=== PATIENT | male | born 1985 | race Caucasian/White ===

== ENCOUNTER 2018-02-27 10:55 | Outpatient (CLI) | payer OTHER | END 2018-02-27 10:56 | disposition home or self-care (01) | LOC: DTY/OP 10:55 | PROVIDERS: ATTEND Family Medicine | DX: E78.1 Pure hyperglyceridemia (principal) | CPT/HCPCS: 97802 ==

== ENCOUNTER 2018-04-24 06:22 | Emergency (ER) | payer OTHER ==
[2018-04-24] MEDS ORDERED: HYDROcodone/Acetaminophen 5/325 mg Tablet ONE (06:39)
== END 2018-04-24 06:42 | disposition home or self-care (01) ==
LOC: ERS 06:22
DX: M54.12 Radiculopathy, cervical region (principal); F17.210 Nicotine dependence, cigarettes, uncomplicated; Z79.899 Other long term (current) drug therapy
CPT/HCPCS: 99283

== ENCOUNTER 2018-05-09 08:53 | Outpatient (CLI) | payer OTHER ==
--- NOTE | 2018-05-09 11:53 | MRI ---
MRI CERVICAL SPINE WITHOUT CONTRAST: HISTORY: Cervical radicular pain. Symptoms involve the left shoulder and radiate down the left arm. Left abarca d tingling. COMPARISON: None. TECHNIQUE: A cervical spine MRI is performed without intravenous Gadolinium administration. Multisequential, mu ltiplanar imaging is performed. FINDINGS: There is an anterior fusion plate with a transvertebral body screw at C6 and C7. Associated metallic susceptibility artifact. Straightening of normal cervical lordosis may be due to patient position o r muscle spasm. No significant STIR hyperintensity to suggest vertebral body edema or ligamentous in jury. The visualized brain parenchyma, the cervicomedullary junction, the cervical cord, and the upper thor acic cord have normal size and signal intensity. 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 The Tornwa ldt cyst measures 1.3 x 1.1 cm. C2-C3: No significant central canal stenosis or neural foraminal narrowing. C3-C4: No significant central canal stenosis. The neural foramina are patent. C4-C5: There is a broad-based disk osteophyte complex that abuts the thecal sac and effaces the vent ral subarachnoid space. Mild central canal stenosis. The neural foramina are patent. Minimal mass effect upon the ventral cord. C5-C6: There is a central/left paracentral disk osteophyte complex that abuts the thecal sac. The v entral subarachnoid space is maintained. Mild central canal stenosis. The neural foramina are paten t. C6-C7: There is a central/right paracentral osteophyte complex. Mild central canal stenosis. The n eural foramina are patent. C7-T1: No significant central canal stenosis. The neural foramina are patent bilaterally. IMPRESSION: 1. Fusion changes of the cervical spine, as above. 2. Varying degrees of central canal stenosis and foraminal narrowing, as detailed above. POS: [facility]
== END 2018-05-09 08:54 | disposition home or self-care (01) ==
LOC: BICMRI 08:53
PROVIDERS: ATTEND Family Medicine
DX: M54.12 Radiculopathy, cervical region (principal); M48.02 Spinal stenosis, cervical region; M54.5 Low back pain
CPT/HCPCS: 72141

== ENCOUNTER 2018-06-18 09:29 | Emergency (ER) | payer OTHER ==
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
== END 2018-06-18 11:19 | disposition home or self-care (01) ==
LOC: ERS 09:29
DX: S16.1XXA Strain of muscle, fascia and tendon at neck level, initial encounter (principal); Z71.6 Tobacco abuse counseling; F17.210 Nicotine dependence, cigarettes, uncomplicated; V43.52XA Car driver injured in collision with other type car in traffic accident, initial encounter
CPT/HCPCS: 72125; 99406

== ENCOUNTER 2018-11-17 05:13 | Emergency (ER) | payer OTHER, SELFPAY ==
[2018-11-17 06:20] LABS: #Eosinphils 0.3 thou/uL (0.0-0.7); #Lymphocytes 1.9 thou/uL (1.20-3.40); #Monocytes 0.4 thou/uL (0.11-0.59); #Neutrophils 4.9 thou/uL (1.40-6.50); %Basophils 0.3 % (0.0-1.0); %Eosinophils 4.6 % (0.0-10.0); %Lymphocytes 24.7 % (21.0-51.0); %Monocytes 5.9 % (0.0-10.0); %Neutrophils 64.6 % (42.0-75.0); Hemoglobin 15.6 g/dL (14.0-18.0); Mean Corpuscular HGB CONC 34.6 g/dL (32.0-36.0); Mean Corpuscular Volume 95.5 fL (78.0-98.0); Mean Platelet Volume 7.9 fL (7.4-10.4); Platelet Count 143 thou/uL (130-400); RBC Distribution Width 11.5 % (11.5-14.5); Red Blood Cell (RBC) Count 4.72 mill/uL (4.70-6.10); White Blood Cell (WBC) Count 7.6 thou/uL (4.8-10.8)
[2018-11-17 06:41] LABS: ALT (SGPT) 30 U/L (8-55); AST (SGOT) 27 U/L (5-34); Alkaline Phosphatase 61 U/L (40-150); Anion Gap 8 mmol/L (10-20); BUN (Urea Nitrogen) 15 mg/dL (8.9-20.6); Bilirubin, Total 0.6 mg/dL (0.2-1.2); Calc. Creatinine Clearance 0 mL/min (70-130); Calcium 9.1 mg/dL (7.8-10.44); Carbon Dioxide 28 mmol/L (22-29); Chloride 104 mmol/L (98-107); Estimated GFR-MDRD Greater than 90; Globulin 2.6 g/dL (2.4-3.5); Glucose 108 mg/dL (70-105); Lipase 28 U/L (8-78); Potassium 3.8 mmol/L (3.5-5.1); Protein, Total 6.6 g/dL (6.0-8.3); Sodium 136 mmol/L (136-145)
--- NOTE | 2018-11-17 06:47 | ULT ---
GALLBLADDER ULTRASOUND: Date: 11/17/18 INDICATION: Upper abdominal pain. FINDINGS: No focal hepatic lesion. There is no evidence of cholelithiasis or gallbladder wall thickening. Commo n duct is normal measurin between 3-5 mm in diameter. Dueñas's sign reported as negative by the sonog rapher. No ascites. IMPRESSION: No evidence of acute gallbladder pathology. POS: [facility]
== END 2018-11-17 06:58 | disposition home or self-care (01) ==
LOC: ERS 05:13
DX: F10.10 Alcohol abuse, uncomplicated (principal); R10.33 Periumbilical pain; F17.210 Nicotine dependence, cigarettes, uncomplicated
CPT/HCPCS: 36415; 76705; 80053; 83690; 85025

== ENCOUNTER 2020-01-28 09:01 | Emergency (ER) | payer OTHER, SELFPAY ==
--- NOTE | 2020-01-28 10:20 | RAD ---
XR Shoulder Lt 3 View STANDARD History: Pain Comparison: None. Findings: No acute displaced fracture or malalignment. The ribs are intact. Soft tissues are unremark able. Impression: No acute osseous abnormality.
[2020-01-28] MEDS ORDERED: Ketorolac Tromethamine 30 MG/ML VIAL ONE (10:27)
[2020-01-28] MEDS ORDERED: HYDROcodone/Acetaminophen 5/325 mg Tablet ONE (10:27)
== END 2020-01-28 10:30 | disposition home or self-care (01) ==
LOC: ERS 09:01
DX: M50.10 Cervical disc disorder with radiculopathy, unspecified cervical region (principal); Z87.891 Personal history of nicotine dependence
CPT/HCPCS: 93005; 96372; J1885

== ENCOUNTER 2024-12-09 11:54 | Emergency (ER) | payer BC, SELFPAY ==
[2024-12-09 13:08] LABS: #Basophils 0.05 10x3/uL (0.0-0.2); #Eosinophils 0.40 10x3/uL (0.0-0.7); #Monocytes 0.52 10x3/uL (0.11-0.59); #Neutrophils 4.15 10x3/uL (1.40-6.50); %Basophils 0.6 % (0.0-1.0); %Eosinophils 5.1 % (0.0-10.0); %Lymphocytes 34.2 % (21.0-51.0); %Monocytes 6.7 % (0.0-10.0); %Neutrophils 53.1 % (42.0-75.0); Hematocrit 43.1 % (42.0-52.0); Hemoglobin 15.5 g/dL (14.0-18.0); Mean Corpuscular Hemoglobin 31.6 pg (27.0-31.0); Mean Corpuscular Volume 87.8 fL (78.0-98.0); Platelet Count 196 10x3/uL (130-400); Red Blood Cell (RBC) Count 4.91 mill/uL (4.70-6.10); White Blood Cell (WBC) Count 7.81 10x3/uL (4.8-10.8)
[2024-12-09 13:26] LABS: ALT (SGPT) 66 U/L (Less than 45); AST (SGOT) 47 U/L (11-34); Albumin 4.2 g/dL (3.1-4.5); Alkaline Phosphatase 65 U/L (40-110); Anion Gap 12 mmol/L (10-20); BUN (Urea Nitrogen) 11 mg/dL (8.9-20.6); Bilirubin, Total 0.7 mg/dL (0.3-1.2); Calc. Creatinine Clearance 0 mL/min (70-130); Calcium 9.2 mg/dL (7.8-10.44); Carbon Dioxide 23 mmol/L (22-29); Chloride 105 mmol/L (98-107); Globulin 2.9 g/dL (2.4-3.5); Glucose 96 mg/dL (70-105); Potassium 4.1 mmol/L (3.5-5.1); Sodium 136 mmol/L (136-145)
== END 2024-12-09 14:25 | disposition home or self-care (01) ==
LOC: ERS 11:54
DX: K64.9 Unspecified hemorrhoids (principal); Z87.891 Personal history of nicotine dependence
CPT/HCPCS: 80053; 85025; 99283